=== PATIENT | female | born 1965 | race Hispanic/Latino ===

== ENCOUNTER 2018-11-22 10:55 | Inpatient (IN) | payer SELFPAY ==
[2018-11-22] MEDS ORDERED: ISOVUE-370 76%-LOCM 1 ML ONE (11:23)
[2018-11-22 12:03] LABS: Hemoglobin 15.1 g/dL (12.0-16.0); Mean Corpuscular HGB CONC 30.3 g/dL (32.0-36.0); Mean Corpuscular Hemoglobin 29.2 pg (27.0-31.0); Mean Corpuscular Volume 96.2 fL (78.0-98.0); Mean Platelet Volume 8.6 fL (7.4-10.4); Platelet Count 149 thou/uL (130-400); RBC Distribution Width 11.5 % (11.5-14.5); Red Blood Cell (RBC) Count 5.19 mill/uL (4.20-5.40); White Blood Cell (WBC) Count 19.3 thou/uL (4.8-10.8)
[2018-11-22 12:04] LABS: Bilirubin Negative (Negative); Blood, Urine Large (Negative); Clarity CLOUDY (Clear); Glucose, Urine (Dipstick) >=1000 mg/dL (Negative); Leukocyte Negative (Negative); Nitrite Positive (Negative); Protein, Urine (Dipstick) 100 mg/dL (Neg-Trace); Specific Gravity, Urine 1.035 (1.002-1.036)
[2018-11-22 12:06] LABS: Bicarbonate (HCO3v) 21.5 mmol/L (22.0-28.0); Calcium, Ionized 1.11 mmol/L (See Comments:); Chloride 100 mmol/L (98-107); Hemoglobin - Calc 19.3 g/dL (12.0-16.0); O2 Tension (PvO2) 34.5 mmHg (35.0-45.0); Potassium 4.6 mmol/L (3.5-5.1); Sodium 130 mmol/L (138-145); T. Carbon Dioxide 22.8 mmol/L (22.0-28.0); pH (Venous) 7.339 (7.320-7.430); vO2 Saturation-calc 62.8 % (60.0-85.0)
[2018-11-22] MEDS ORDERED: Ondansetron PF 4 MG/2 ML Vial ONE ×2 (12:13→13:28)
[2018-11-22 12:17] LABS: Band 34 % (5-11); Lymphocytes 2 % (21-51); MDiff Complete? YES; Monocytes 8 % (0-10); Myelocyte 1 % (0-0); Neutrophil 55 % (42-75); RBC Morphology Normal
[2018-11-22 12:18] LABS: ALT (SGPT) 24 U/L (8-55); AST (SGOT) 27 U/L (5-34); Albumin 3.8 g/dL (3.5-5.0); Alkaline Phosphatase 275 U/L (40-150); Anion Gap 20 mmol/L (10-20); BUN (Urea Nitrogen) 17 mg/dL (9.8-20.1); Bilirubin, Total 1.1 mg/dL (0.2-1.2); Calc. Creatinine Clearance 0 mL/min (70-130); Carbon Dioxide 21 mmol/L (22-29); Chloride 93 mmol/L (98-107); Estimated GFR-MDRD 40; Globulin 3.8 g/dL (2.4-3.5); Glucose 463 mg/dL (70-105); Lipase Less than 4 U/L (8-78); Potassium 4.6 mmol/L (3.5-5.1); Protein, Total 7.6 g/dL (6.0-8.3); Sodium 129 mmol/L (136-145)
[2018-11-22 12:24] LABS: Bacteria/HPF 4+ HPF (None Seen); Hyaline Casts/LPF 4-6 HYALINE CAST LPF (0-3 Hyaline); Pathc Cast-AUWi Flag 0.81 (0-2.49); Squamous Epithelial 0-3 HPF (0-3)
[2018-11-22 12:27] LABS: Renal Epithelial None Seen HPF (0-3); Transitional Epithelial NONE SEEN HPF (0-3)
[2018-11-22] MEDS ORDERED: cefTRIAXone\\ROCEPHIN 2 GM VIAL ONE (12:43)
[2018-11-22] MEDS ORDERED: Insulin Regular 300 UNITS/3 ML VIAL ONE (12:43)
[2018-11-22] MEDS ORDERED: Ondansetron ODT 4 MG TAB PO PRN (13:31)
[2018-11-22] MEDS ORDERED: Ondansetron PF 4 MG/2 ML Vial IVP PRN (13:31)
[2018-11-22] MEDS ORDERED: Dextrose 5% in Water 1,000 ML IV PRN (13:33)
[2018-11-22] MEDS ORDERED: Dextrose 50% Abboject 50 ML SYRINGE SLOW IVP PRN (13:33)
--- NOTE | 2018-11-22 14:10 | CT ---
CT ABDOMEN AND PELVIS WITH IV CONTRAST: Multiple axial tomograms were obtained through the abdomen and pelvis with IV enhancement. Initial i mages were obtained which showed no IV enhancement due to contrast leak from the IV. INDICATION: Right lower quadrant pain and elevated white count. FINDINGS: Lung bases clear. There is an enhancing nodule in the anterior left lobe of liver measuring 1.8 cm. This is indetermin ate on this single-phase study. It could represent hemangioma or other vascular lesion. Liver, spleen, and pancreas are otherwise unremarkable. Adrenal glands are normal. The right kidney is abnormal. The right kidney shows perinephric stranding and haziness consistent w ith inflammation. The right kidney is edematous. The right kidney shows decreased enhancement, armando cially in the lower pole with heterogeneous enhancement in the upper pole cortex as well. Findings w ould be consistent with right pyelonephritis. There are at least 2 tiny air pockets identified, 1 in the collecting structures of the right lower pole and another in the right cortex. This would sugge st emphysematous pyelonephritis. Left kidney unremarkable. Urinary bladder unremarkable. Bowel loops unremarkable. Uterus and adnexa unremarkable. IMPRESSION: The right kidney is abnormal with perinephric inflammatory changes, areas of abnormal enhancement, an d tiny gas pockets seen. Findings would suggest emphysematous pyelonephritis. Findings discussed with Dr. King. CODE CR POS: [facility]
[2018-11-22] MEDS ORDERED: cefTRIAXone\\ROCEPHIN 1 GM VIAL ONE (14:14)
[2018-11-22] MEDS ORDERED: Milk Of Magnesia 30 ML UDCUP ONE (14:15)
--- NOTE | 2018-11-22 14:25 | PRG ---
DATE OF SERVICE: 11/22/2018 The formal read on the CT scan of the abdomen reveals an emphysematous right pyelonephritis without perinephric abscess. Discussed with ER physician. We will add an additional gram of Rocephin as well as adding meropenem to get better broader coverage. The patient was made aware we will make full inpatient. Job ID: [id number]
[2018-11-22] MEDS ORDERED: MEROPENEM 1 GM/50 ML 1 GM in Premix Bag 1 BAG IVPB SCH (15:00)
[2018-11-22] MEDS ORDERED: Meropenem 2 GM in Sodium Chloride 0.9% 100 ML IVPB SCH (15:00)
[2018-11-22] MEDS ORDERED: Vancomycin HCl 1.5 GM in Sodium Chloride 0.9% 250 ML 300 ML IVPB SCH (17:00)
[2018-11-22] MEDS: Sodium Chloride 0.9% 1,000 ML IV SCH (17:32)
[2018-11-22] MEDS: Acetaminophen 325 MG TAB PO PRN (17:43)
[2018-11-22 19:26] VITALS: BMI 23.4
--- NOTE | 2018-11-22 21:01 | HP ---
CHIEF COMPLAINT: Nausea, vomiting, high blood sugar. HISTORY OF PRESENT ILLNESS: This patient is a 53-year-old female, who is a Upper Sorbian-speaking only patient spoken to via a v belt inspector. The patient's is also with her today. They report the patient has a history of hypertension and she takes losartan which she obtains in [place]. Otherwise, she has no significant past medical history. She has started having some headaches, nausea, vomiting, abdominal discomfort. She believes she has had some fevers and some chills and some difficulty with urinating and some frequency. All of the symptoms started 4 days ago. She presented to the clinic where she had blood sugar checked and it was significantly elevated and she was subsequently referred here to the emergency department. The patient does report significant abdominal discomfort, more so on the right side. She has had no other antecedent symptoms or illness. She has had no substantial change in her diet, although she did say that she had gone off soft drinks for 2 years and recently started drinking Cokes again. PAST MEDICAL HISTORY: Only notable for the above-mentioned hypertension. PAST SURGICAL HISTORY: She has had a small procedure done on the left jaw area. Details are not clear on exactly what that was. FAMILY HISTORY: Her father has diabetes. SOCIAL HISTORY: The patient is a nonsmoker, nondrinker, and nondrug user. She is . Her is present with her today. She is a full code and her would be her surrogate decision maker should that become necessary. CURRENT MEDICATIONS: Losartan, dose is not known. She obtains this from [place]. ALLERGIES: NONE. PHYSICAL EXAMINATION: VITAL SIGNS: BP 118/74, pulse 109, respirations 24, temperature 98.6, O2 saturation 94% on room air. GENERAL APPEARANCE: Age-appropriate female. She is in no distress, but does appear slightly ill and uncomfortable. HEENT: PERRL. No OP lesions. Dry oral mucosa. NECK: Supple and symmetric. HEART: Regular rate and rhythm without murmurs, gallops, or rubs. LUNGS: Clear to auscultation bilaterally with good chest wall expansion and air exchange. ABDOMEN: Soft, nondistended. Bowel sounds are diminished. She is very tender to palpation throughout the right abdomen in the upper and lower quadrants and slightly in the suprapubic area. She does have some right CVA tenderness as well. EXTREMITIES: Have no cyanosis, clubbing, or edema. SKIN: Warm and dry. NEUROLOGIC: The patient appears to be fully intact without gross focal deficits. LABORATORY DATA: White count 19.3, hemoglobin 15.1, platelets 149, 34 bands, 2 lymphocytes, 1 myelocyte. VBG; pH 7.34, pCO2 is 40, PO2 is 34.5, bicarb 21.5. Chemistry; sodium is 129, potassium 4.6, chloride 93, CO2 21, anion gap 20, BUN 17, creatinine is 1.37, glucose 463, alkaline phosphatase 275. Lipase is less than 4. Urinalysis shows large glucose, ketones, large blood, positive nitrites, negative leukocyte esterase, 11 to 20 red cells, 11 to 20 white cells, 4+ bacteria. Beta-hydroxybutyrate is 2.6. CT of the abdomen, results are pending, but my read appears that there is some evidence of abnormalities in the right kidney, potentially suggestive of a right pyelonephritis. I do not see significant hydronephrosis. IMPRESSION AND PLAN: 1. Nausea and vomiting. The etiology includes urinary tract infection, possible pyelonephritis versus significant hyperglycemia and borderline ketosis. The patient has been hydrated and given p.r.n. Zofran. We will continue with the Zofran. 2. New onset diabetes mellitus with severe hyperglycemia. The patient has no history of this, but has been symptomatic for several days. She will receive continued insulin dosing with q.4 hour Accu-Cheks as well as aggressive hydration. We will check an A1c in the morning. Lipid panel in the morning. Consult dietitians. 3. Dehydration. Continue with aggressive IV fluid. She has had 2 L of fluid in the emergency department. We will continue normal saline at 100 an hour. 4. Acute renal injury. The patient has elevated creatinine with a GFR estimated at 40. She has no prior lab work here to know if this is acute or chronic. 5. Urinary tract infection. Possible right pyelonephritis. She has abdominal and flank pain, some evidence of infection on urine with a high white count and left shift. She has received Rocephin in the emergency department. We will continue the Rocephin and follow up urine cultures. 6. Pseudohyponatremia. Should improve with treatment of the glucose. 7. Hypertension. The patient is not able to take p.o. at the moment. Therefore, we will hold off on any antihypertensive medications, especially given that she is dehydrated. 8. Disposition. The patient will be placed on observation. I talked to the patient and her at length. They are very concerned about cost, so we will try to get her blood sugar under control and get her rehydrated. If she can improve significantly, likely be able to convert over to an oral regimen for type 2 diabetes rather than continuing with the insulin. Job ID: [id number]
--- NOTE | 2018-11-22 22:25 | CON ---
DATE OF CONSULTATION: 11/22/2018 HISTORY OF PRESENT ILLNESS: This is a 53-year-old white female, who I was asked to see by the emergency room physicians. She came into the ER today with nausea, vomiting, elevated blood glucose, and right-sided abdominal pain. On talking with her with the aid of a supervisor electronic coils, she speaks no Tamazight, but only Somali, I was able to obtain the following history. She has been sick for 3 days at home with nausea, vomiting, subjective fever, chills, shakes, rigors, and right-sided abdominal pain. She has also had increased thirst and increased frequency of urination. She denies any dysuria. Her temperature elevation has been subjective, I do not believe she has taken it at home. She has had on occasion urinary tract and kidney infections in the past. She has had no history of kidney stones. She had no knowledge of being diabetic before she came to the ER. Her blood sugar was 463. I do not think it has been repeated yet. She had a blood gas done with a pH of 7.33 and a bicarbonate of 21.5. Her white count was 19.3, which is elevated. Her hemoglobin was 15.5. Urinalysis showed 11-20 red cells, 11-20 white cells, 4+ bacteria. She had a CAT scan done that I have reviewed. The CAT scan was done with IV contrast. Apparently, on the initial CAT scan, the IV infiltrated her vein, so it was really a noncontrast study and then it was repeated with contrast. On reviewing that, I do not see any evidence of hydronephrosis. The right kidney is swollen compared to the left. It does take up contrast in a rather splotchy manner. There is some edema to the lower pole of the right collecting system. There is a very tiny area of air that appears to probably be in the cortex of the kidney, although it could possibly be out in the distal end of one of her calices. This has been read as emphysematous pyelonephritis. I reviewed it and also reviewed it with Dr. Pablo Rod who is the radiologist from the [facility] in my office today and it looks like there is a small area of air in the lower pole of the right kidney. It does not look like there is air in the collecting system in the renal pelvis region, probably just some fat. She did receive meropenem and Rocephin in the emergency center. Unfortunately, she was sent up to the 4th floor, which is just the medical floor. I think she needs to be in the ICU and I have talked with the ER about that and I have talked with Dr. Castro and that is being arranged for her to be transferred. PAST MEDICAL HISTORY: Negative as far she knows, she has not had diabetes but certainly is diabetic at this point, probably also hypertensive. She has had a and one vaginal delivery. She has had no other surgeries. ALLERGIES: SHE HAS NO KNOWN DRUG ALLERGIES. MEDICATIONS: She takes no routine medications according to her. SOCIAL HISTORY: She does not smoke. She does not drink. She is . She has 2 children. PHYSICAL EXAMINATION: She is shaking with some rigors. She has right CVA tenderness, which is fairly significant and some tenderness in the right upper quadrant, right lower quadrant, which is also fairly significant. Her abdomen is otherwise soft and nontender. IMPRESSION: Urinary tract infection, which may be emphysematous pyelonephritis. There is one small area of gas formation that looks to be in the renal cortex and not in the collecting system. There is nothing that looks like an abscess currently. I have talked with her with aid of a supervisor electronic coils, indicating that this is a very serious infection especially in light of her diabetes. This is an infection that if it is not responding to antibiotics in a quick manner, may require an emergent nephrectomy and loss of that kidney. This could happen and because of this, she should be watched in the ICU setting and not up on the floor. I talked with the hospitalist. She is going to help in dealing with her problems with her elevated blood sugar and I talked to Dr. Rice, the lead pharmacy technician, who is production support developer for critical care and ICU this weekend, so he will be aware that she is an inpatient. I will follow along with her in this regard. Job ID: [id number]
[2018-11-22] MEDS: MEROPENEM 1 GM/50 ML 1 GM in Premix Bag 1 BAG IVPB SCH (23:48)
[2018-11-23] MEDS: Sodium Chloride 0.9% 1,000 ML IV SCH ×3 (05:37→18:02)
[2018-11-23] MEDS ORDERED: Vancomycin HCl 1 GM in Premix Bag 1 BAG IVPB SCH (06:00)
[2018-11-23 06:07] LABS: Hemoglobin A1c 13.5 % (4.0-6.0)
[2018-11-23 06:08] LABS: Anion Gap 17 mmol/L (10-20); BUN (Urea Nitrogen) 17 mg/dL (9.8-20.1); Calc. Creatinine Clearance 72 mL/min (70-130); Calcium 8.7 mg/dL (7.8-10.44); Carbon Dioxide 16 mmol/L (22-29); Chloride 106 mmol/L (98-107); Cholesterol 114 mg/dl (< 200 Desired); Estimated GFR-MDRD 68; Glucose 222 mg/dL (70-105); HDL Cholesterol Less than 8 mg/dL (>60 Neg Risk); Potassium 4.2 mmol/L (3.5-5.1); Sodium 135 mmol/L (136-145); Triglycerides 373 mg/dL (Less than 150)
[2018-11-23 06:34] LABS: Band 25 % (5-11); Hemoglobin 12.9 g/dL (12.0-16.0); Lymphocytes 9 % (21-51); MDiff Complete? YES; Mean Corpuscular HGB CONC 32.5 g/dL (32.0-36.0); Mean Corpuscular Hemoglobin 31.7 pg (27.0-31.0); Mean Corpuscular Volume 97.3 fL (78.0-98.0); Mean Platelet Volume 8.9 fL (7.4-10.4); Monocytes 7 % (0-10); Neutrophil 59 % (42-75); Platelet Count 110 thou/uL (130-400); Platelet Morphology Comment Appears Decreased; RBC Distribution Width 11.7 % (11.5-14.5); Red Blood Cell (RBC) Count 4.08 mill/uL (4.20-5.40); White Blood Cell (WBC) Count 15.6 thou/uL (4.8-10.8)
[2018-11-23] MEDS: MEROPENEM 1 GM/50 ML 1 GM in Premix Bag 1 BAG IVPB SCH ×3 (07:42→22:19)
[2018-11-23] MEDS: HumaLOG 300 UNITS/3 ML VIAL SC PRN ×2 (09:17→21:35)
[2018-11-23] MEDS ORDERED: Morphine 4 MG/ML VIAL ONE (10:40)
--- NOTE | 2018-11-23 12:14 | CT ---
CT ABDOMEN PERFORMED WITHOUT CONTRAST ENHANCEMENT: Date: 11/23/18 HISTORY: Right-sided pyelonephritis. Evaluation for possible emphysematous pyelonephritis. COMPARISON: CT examination performed yesterday (11/22/18). FINDINGS: Lung bases show some bibasilar atelectasis. The liver has fatty change. The spleen, pancreas, and gal lbladder regions are unremarkable. There is contrast excretion in the gallbladder from the previous C T. Right and left adrenal glands are normal in appearance. There is residual contrast still present with in the right kidney, which is enlarged. Pattern is compatible with pyelonephritis. The areas which ap pear to represent air density on the previous examination are no longer seen. The overall appearance is otherwise similar. No significant periaortic adenopathy. IMPRESSION: 1. Bibasilar atelectasis. 2. Fatty changes of liver. 3. Right-sided pyelonephritis. The air density noted within the collecting system on the prior exami nation has resolved. POS: [facility]
[2018-11-23] MEDS: Morphine 2 MG/ML SYRINGE SLOW IVP PRN (17:10)
[2018-11-23] MEDS: Acetaminophen 325 MG TAB PO PRN (19:58)
--- NOTE | 2018-11-23 20:33 | PDOC.PN ---
- Subjective Encounter Start Date: 11/23/18 Feeling a little better today. Slightly less pain. No vomiting. WOuld like to eat.o - Objective Resuscitation Status - Order Detail: 11/22/18 13:31 Resuscitation Status Routine Resuscitation Status: FULL: Full Resuscitation Vital Signs & Weight: Vital Signs (12 hours) Temp Pulse Ox 11/23/18 19:38 99.6 F 11/23/18 14:44 98.8 F 11/23/18 12:00 97 11/23/18 10:46 98.7 F Weight Weight 132 lb 4.438 oz Most Recent Monitor Data Heart Rate from ECG 91 NIBP 128/71 NIBP BP-Mean 90 Respiration from ECG 28 SpO2 97 I&O: 11/22/18 11/23/18 11/24/18 06:59 06:59 06:59 Intake Total 3650 Output Total 1600 Balance 2049 Result Diagrams: 11/23/18 05:11 11/23/18 05:11 Additional Labs: Accuchecks 11/23/18 11/23/18 11/23/18 15:58 12:09 09:05 POC Glucose 163 H 171 H 238 H 11/23/18 11/22/18 04:02 23:53 POC Glucose 194 H 205 H Phys Exam - Physical Examination Respiratory: no wheezing, no rales, no rhonchi Cardiovascular: RRR, no significant murmur, no rub Gastrointestinal: soft Persistent tenderness over the right abdomen. Musculoskeletal: no edema Neurological: non-focal Psychiatric: normal affect Dx/Plan - Plan * .
--- NOTE | 2018-11-23 21:04 | PDOC.EVN ---
Event Note - Event Note Event Note: Progress note locked. Recap. Patient is doing better today. Less pain. WBC slightly better. CT with no evidence of of gas in the kidney. Culture growing e. coli. Blood sugars improving. DC VAnc. Continue Zosyn. Continue insulin. Advance diet as tolerated.
--- NOTE | 2018-11-23 21:12 | CON ---
DATE OF CONSULTATION: 11/23/2018 SERVICE: Pulmonary Medicine. REASON FOR CONSULT: IMCU patient. HISTORY OF PRESENT ILLNESS: The patient is a 53-year-old female with a past medical history significant for uncontrolled type 2 diabetes mellitus, which is a new diagnosis for her. She was in her usual state of health when she started having onset of nausea, vomiting, and flank discomfort. She also noted dysuria and frequency. She presented to the emergency department because of how severe her discomforts were, and she was discovered to have an acute pyelonephritis. There was a small focus of air in the collecting system making it very concerning for early emphysematous pyelonephritis. As such, she was transitioned down to the ICU for very close observation. Overnight, her vital signs actually stabilized significantly. A repeat CT scan was performed this morning demonstrating a resolution of air in the collecting system. She denies any current fevers or chills. She is actually thirsty this morning. She had a little bit of nausea and vomiting overnight, but as of this morning, she has not experienced anymore, particularly with the help of some antiemetic. PAST MEDICAL HISTORY: 1. Hypertension. 2. Type 2 diabetes mellitus (new diagnosis). PAST SURGICAL HISTORY: Left jaw surgery. FAMILY HISTORY: Noncontributory. SOCIAL HISTORY: Negative for alcohol, tobacco, or illicit drug use. She is Slovak-speaking only and from [place]. She is . She has no exposure to chemicals, dust, or asbestos. ALLERGIES: NO KNOWN DRUG ALLERGIES. MEDICATIONS: List of inpatient medications was reviewed. No specific updates were made at this time. REVIEW OF SYSTEMS: General, head, ears, eyes, nose, throat, cardiovascular, respiratory, GI, , musculoskeletal, neurologic, and skin is negative except as mentioned in the HPI. PHYSICAL EXAMINATION: VITAL SIGNS: Afebrile currently. Her T-max is 100.8. Pulse 96, blood pressure 118/98, respirations 19, saturation 97% on room air. GENERAL: The patient is awake and alert, in no apparent distress. LUNGS: Excellent air entry. There is no prolonged expiratory phase or wheezing present. HEART: Normal rate and regular. ABDOMEN: Soft. Tender to palpation throughout with a little bit of rebound. She has positive bowel sounds. : No Barnett. MUSCULOSKELETAL: No cyanosis or clubbing. There is no pitting in the bilateral lower extremities. NEUROLOGIC: Grossly nonfocal. LABORATORY DATA: WBC 15.6, hemoglobin 12.9, platelets 110,000. PH 7.33, PCO2 of 40, PO2 of 34, but this was a VBG. Basic metabolic profile, hemoglobin A1c, and liver function studies are otherwise unremarkable. Creatinine is downtrending from 1.37 down to 0.87. Sodium has improved to 135. Blood sugar has improved down to 222. Beta-hydroxybutyrate is marginally positive at 2.6. E. coli is growing in the urine. Sensitivities currently pending. IMAGING DATA: CT of the abdomen and pelvis demonstrates evidence of pyelonephritis. Minimal loculation of air has completely resolved. Fatty liver changes are noted. Bibasilar atelectasis is present. ASSESSMENT: 1. Severe sepsis. 2. Pyelonephritis secondary to E. coli. 3. Acute kidney injury, improving. 4. Type 2 diabetes mellitus, new onset. DISCUSSION AND PLAN: We will continue antibiotics. We will discontinue the vancomycin as we know our organism is a gram-negative pineda. I will advance her diet to clear liquids. We will continue supportive care through time. She certainly has a high risk for decompensation, but at this point, things are tentatively moving in the right direction. We will see about increasing mobilization efforts throughout the next 24-48 hours. If she stabilizes tomorrow, we can consider transitioning her to the floor while we await final sensitivities on her organism. I am reassured that she has cleared her temperature profile for the time being, but pyelonephritis is certainly well known to create fever spikes over the next 24-48 hours which we are anticipating. 70 minutes have been devoted to this patient in various activities. I personally reviewed all imaging studies and laboratory data noted within this document. For fifty percent of this time, I was interacting with the patient at the bedside or coordinating care with the care team. For the remainder of the time I was immediately available to the patient in the hospital unit. Job ID: [id number] [facility]
[2018-11-24] MEDS: HumaLOG 300 UNITS/3 ML VIAL SC PRN ×4 (00:40→21:22)
[2018-11-24] MEDS: Sodium Chloride 0.9% 1,000 ML IV SCH (05:47)
[2018-11-24 05:52] LABS: Anion Gap 14 mmol/L (10-20); BUN (Urea Nitrogen) 16 mg/dL (9.8-20.1); Calc. Creatinine Clearance 76 mL/min (70-130); Calcium 8.9 mg/dL (7.8-10.44); Carbon Dioxide 17 mmol/L (22-29); Chloride 105 mmol/L (98-107); Estimated GFR-MDRD 73; Glucose 161 mg/dL (70-105); Magnesium 1.6 mg/dL (1.6-2.6); Potassium 3.7 mmol/L (3.5-5.1); Sodium 132 mmol/L (136-145)
[2018-11-24] MEDS: MEROPENEM 1 GM/50 ML 1 GM in Premix Bag 1 BAG IVPB SCH (06:00)
[2018-11-24 06:06] LABS: Phosphorus 1.9 mg/dL (2.3-4.7)
[2018-11-24 06:08] LABS: Band 26 % (5-11); Hemoglobin 12.9 g/dL (12.0-16.0); Lymphocytes 8 % (21-51); MDiff Complete? YES; Mean Corpuscular HGB CONC 33.4 g/dL (32.0-36.0); Mean Corpuscular Hemoglobin 32.5 pg (27.0-31.0); Mean Corpuscular Volume 97.2 fL (78.0-98.0); Mean Platelet Volume 8.4 fL (7.4-10.4); Monocytes 11 % (0-10); Neutrophil 55 % (42-75); Platelet Count 116 thou/uL (130-400); Platelet Morphology Comment Appears Decreased; RBC Distribution Width 11.9 % (11.5-14.5); Red Blood Cell (RBC) Count 3.99 mill/uL (4.20-5.40); White Blood Cell (WBC) Count 10.8 thou/uL (4.8-10.8)
[2018-11-24] MEDS ORDERED: Potassium Phosphate 21 MMOL in Sodium Chloride 0.9% 250 ML 250 ML IV SCH (06:30)
[2018-11-24] MEDS ORDERED: Sodium Chloride 0.9% 1,000 ML IV SCH (09:21)
[2018-11-24] MEDS: cefTRIAXone\\ROCEPHIN 1 GM in Sodium Chloride 0.9% 100 ML IVPB SCH (10:35)
[2018-11-24] MEDS: Morphine 2 MG/ML SYRINGE SLOW IVP PRN (10:43)
--- NOTE | 2018-11-24 11:35 | PDOC.PN ---
- Subjective Encounter Start Date: 11/24/18 Encounter Start Time: 11:31 Patient seen and examined, states she feels well with no complaints. - Objective Resuscitation Status - Order Detail: 11/22/18 13:31 Resuscitation Status Routine Resuscitation Status: FULL: Full Resuscitation Vital Signs & Weight: Vital Signs (12 hours) Temp Pulse Ox 11/24/18 11:21 99.8 F H 11/24/18 08:00 100 11/24/18 07:13 98.8 F 11/24/18 04:00 98.7 F 11/24/18 00:00 97.5 F L Weight Weight 132 lb 4.438 oz Most Recent Monitor Data Heart Rate from ECG 90 NIBP 146/101 NIBP BP-Mean 116 Respiration from ECG 12 SpO2 94 I&O: 11/23/18 11/24/18 11/25/18 06:59 06:59 06:59 Intake Total 5100 Output Total 2775 Balance 2325 Result Diagrams: 11/24/18 04:45 11/24/18 04:45 Additional Labs: Accuchecks 11/24/18 11/24/18 11/23/18 07:54 04:16 23:59 POC Glucose 176 H 188 H 262 H 11/23/18 11/23/18 11/23/18 20:16 15:58 12:09 POC Glucose 318 H 163 H 171 H Phys Exam - Physical Examination Constitutional: NAD HEENT: PERRLA, moist MMs, sclera anicteric Neck: no nodes, no JVD, supple Respiratory: no wheezing, no rales, no rhonchi Cardiovascular: RRR, no significant murmur, no rub Gastrointestinal: soft, non-tender, no distention, positive bowel sounds Musculoskeletal: pulses present, edema present (trace) Dx/Plan (1) Pyelonephritis Code(s): N12 - TUBULO-INTERSTITIAL NEPHRITIS, NOT SPCF ACUTE OR CHRONIC Status: Acute (2) Diabetes mellitus Code(s): E11.9 - TYPE 2 DIABETES MELLITUS WITHOUT COMPLICATIONS Status: Acute (3) Urinary tract infection Status: Acute - Plan * Change merrem to rocephin, C&S shows E.Coli * reduce IVFs to 60cc/hr given high BP, can likely DC IVFs in AM if patient stable * transfer to med/sx floor * start oral bicarb * vitals stable * case and plan d/w patient at length, in kinyarwanda, she understood and agreed with this plan.
[2018-11-24] MEDS ORDERED: Potassium Chloride 20 MEQ TAB PO SCH (12:30)
[2018-11-24] MEDS ORDERED: Magnesium 2 GM/50 ML 2 GM in Premix Bag 1 BAG IVPB SCH (12:30)
--- NOTE | 2018-11-24 12:44 | PRG ---
DATE OF SERVICE: 11/24/2018 SERVICE: Pulmonary Medicine. INTERVAL HISTORY: The patient is doing fine from respiratory standpoint. Breathing comfortably. No complaints of chest pain, fevers, or chills. Her flank discomfort is actually much improved. Otherwise, there has been no interval change to her condition. PHYSICAL EXAMINATION: VITAL SIGNS: Afebrile with a T-max of 99.8. Pulse 88, blood pressure 149/97, respirations 20, and saturation 94% on room air. GENERAL: The patient is awake and alert, in no apparent distress. LUNGS: Decent air entry. No prolonged expiratory phase is present. Minimal crackles are noted. HEART: Normal rate and regular. ABDOMEN: Soft, nontender, and nondistended. Bowel sounds are positive. MUSCULOSKELETAL: No cyanosis or clubbing. No pitting in the bilateral lower extremities. NEUROLOGIC: Grossly nonfocal. LABORATORY DATA: WBC 10.8, hemoglobin 12.9, platelets 116,000 and rebounding. Band count is 26% on top of 55% neutrophils. Creatinine 0.82, which is stable. Basic metabolic profile is otherwise unremarkable. Phosphorus 1.9. Magnesium 1.6. E. coli is growing in the urine. This is a pansensitive organism. ASSESSMENT: 1. Severe sepsis. 2. Pyelonephritis secondary to Escherichia coli, pansensitive. 3. Acute kidney injury, resolved. 4. Type 2 diabetes mellitus, new diagnosis. DISCUSSION AND PLAN: The patient is stable for transition out of the ICU to the medical unit. Potassium and magnesium will be replaced. When she gets out of the IMCU, she will have no further requirements for inpatient Pulmonary/Critical Care opinion, and I will sign off. Please call with additional questions or concerns through time. Job ID: [id number]
[2018-11-24] MEDS: Acetaminophen 325 MG TAB PO PRN (20:53)
[2018-11-24] MEDS: Bicitra 30 ML UDCUP PO SCH (20:53)
[2018-11-25] MEDS: HumaLOG 300 UNITS/3 ML VIAL SC PRN ×2 (05:35→12:32)
[2018-11-25 06:41] LABS: #Lymphocytes 0.8 thou/uL (1.20-3.40); #Monocytes 0.8 thou/uL (0.11-0.59); %Eosinophils 0.1 % (0.0-10.0); %Lymphocytes 10.8 % (21.0-51.0); %Monocytes 10.7 % (0.0-10.0); %Neutrophils 78.4 % (42.0-75.0); Mean Corpuscular HGB CONC 33.4 g/dL (32.0-36.0); Mean Corpuscular Volume 95.8 fL (78.0-98.0); Mean Platelet Volume 8.6 fL (7.4-10.4); Platelet Count 147 thou/uL (130-400); RBC Distribution Width 11.7 % (11.5-14.5); Red Blood Cell (RBC) Count 4.06 mill/uL (4.20-5.40); White Blood Cell (WBC) Count 7.7 thou/uL (4.8-10.8)
[2018-11-25 07:01] LABS: Anion Gap 16 mmol/L (10-20); BUN (Urea Nitrogen) 14 mg/dL (9.8-20.1); Calc. Creatinine Clearance 90 mL/min (70-130); Calcium 8.7 mg/dL (7.8-10.44); Carbon Dioxide 18 mmol/L (22-29); Chloride 103 mmol/L (98-107); Estimated GFR-MDRD 89; Glucose 190 mg/dL (70-105); Potassium 3.7 mmol/L (3.5-5.1); Sodium 133 mmol/L (136-145)
[2018-11-25 07:32] VITALS: TEMP 98.3
[2018-11-25] MEDS: Bicitra 30 ML UDCUP PO SCH (09:04)
[2018-11-25] MEDS: cefTRIAXone\\ROCEPHIN 1 GM in Sodium Chloride 0.9% 100 ML IVPB SCH (09:10)
--- NOTE | 2018-11-25 12:03 | PDOC.EVN ---
Event Note - Event Note Event Note: DC SUMMARY #[id number]
[2018-11-25 14:17] VITALS: BP 124/76
--- NOTE | 2018-11-26 02:06 | DIS ---
DATE OF ADMISSION: 11/22/2018 DATE OF DISCHARGE: 11/25/2018 ADMITTING DIAGNOSES: Abdominal pain, pyelonephritis, urinary tract infection. DISCHARGE DIAGNOSES: Abdominal pain, resolved. Urinary tract infection, resolved. Pyelonephritis, resolved. HOSPITAL COURSE: This is a 53-year-old female, admitted to Internal Medicine Team, followed very closely by Urology as well as Pulmonary Critical Care. The patient was admitted to the ICU, given IV fluids and antibiotics for about 3 days. The patient at point in time of discharge was stable. Denied any nausea, vomiting, diarrhea, constipation, chest pain, fevers, chills, or shortness of breath. No dysuria. The patient's symptoms were completely resolved. The patient was given a prescription for Keflex to be taken twice a day for 7 days. The patient was to follow up with PCP within 2 to 3 weeks for repeat UA and further management and care. Case and plan discussed with patient at length in Qatari. She understood and agreed with this plan. DISPOSITION: Home. FOLLOWUP: Follow up with PCP within 2 to 3 weeks. MEDICATIONS: See MAR. ACTIVITY: As tolerated with assistance as needed. DIET: Low-fat, low-calorie, high-fiber diet. CONDITION: Stable. PROGNOSIS: Good. Prescriptions given. Case and plan again discussed with the patient and family at length. They understood and agreed to this plan. Job ID: [id number]
== END 2018-11-25 14:19 | disposition home or self-care (01) | DRG 872 ==
LOC: ERS 10:55 → T4-A 16:00 → IMCU/EMU 19:42 → T4-A 11-24 14:43
PROVIDERS: ADMIT Internal Medicine; ATTEND Internal Medicine
DX: A41.51 Sepsis due to Escherichia coli [E. coli] (principal); N17.9 Acute kidney failure, unspecified; N12 Tubulo-interstitial nephritis, not specified as acute or chronic; R65.20 Severe sepsis without septic shock; I10 Essential (primary) hypertension; E86.0 Dehydration; E11.65 Type 2 diabetes mellitus with hyperglycemia; Z98.890 Other specified postprocedural states
CPT/HCPCS: 36415; 36416; 74150; 74177; 80048; 80053; 80061; 81003; 81015; 82010; 82330; 82803; 83036; 83690; 83735; 84100; 85025; 87077; 87086; 87186; 96361; 96365; 96366; 96368; 96375; 96376; J0696; J1815; J2185; J2270; J2405; J3370; J3475; J3490; J7050; Q0162; Q9966

== ENCOUNTER 2018-12-17 08:28 | Outpatient (CLI) | payer OTHER, SELFPAY ==
--- NOTE | 2018-12-17 10:36 | CT ---
CT abdomen and pelvis with and without IV contrast: HISTORY: Acute pyelonephritis COMPARISON: 11/22/2018 FINDINGS: The lung bases demonstrate mild infiltrate in the lingula which is stable. There is a 2 cm mass in the left lobe of the liver with peripheral nodular enhancement and subsequent filling on the delayed images, consistent with hemangioma. The spleen, pancreas and adrenal glands are normal. No calcified gallstones are seen. There is interval decrease in this swelling of the right kidney since the last exam. Heterogeneity in the enhancement of the right kidney has improved in the interim along the perinephric inflammatory changes. The tiny air pockets noted on the previous study have resolved in the interim. No hydrourete ronephrosis is seen on either side. There is normal contrast excretion into the ureters and urinary bladder bilaterally. No loculated fluid collection is seen to suggest abscess formation. No free air, free fluid or lymphadenopathy seen in the abdomen or pelvis. A retroaortic left renal ve in is again seen. There is a 4.7 cm new right adnexal mass posterior to the uterus. A similar 3 cm mass in the lateral segment of the left lobe of the liver is seen, consistent with hem angioma. IMPRESSION: 1. There are hemangiomas 2. Resolving right pyelonephritis 3. New right adnexal mass. Evaluation with pelvic ultrasound should be performed. Transcribed Date/Time: 12/17/2018 11:52 AM
[2018-12-17] MEDS ORDERED: Iopamidol 370 76% 100 ML VIAL ONE (11:30)
== END 2018-12-17 08:29 | disposition home or self-care (01) ==
LOC: CT 08:28
PROVIDERS: ATTEND Urology
DX: N10 Acute pyelonephritis (principal); D18.03 Hemangioma of intra-abdominal structures; N83.8 Other noninflammatory disorders of ovary, fallopian tube and broad ligament
CPT/HCPCS: 74178; Q9967